=== PATIENT | male | born 1980 | race Two or more races ===

== ENCOUNTER 2018-05-08 08:00 | Outpatient (CLI) | payer MEDICAID, SELFPAY ==
--- NOTE | 2018-05-08 16:12 | PC.NURSE ---
0825 - REMOVED DRESSING FROM PT'S FOREARM. MOISTENED PACKING WITH NS AND REMOVED EASILY. IRRIGATED WOUND WITH NS. WOUND BED RED AND MOIST. MOISTENED STERILE GAUZE WITH NS AND PACKED WOUND. COVERED WITH DRY 4X4 GAUZE PADS AND HELD IN PLACE BY WRAPPING STERILE GAUZE AROUND SITE FOLLOWED BY COBAN. ENCOURAGED TO KEEP CLEAN AND DRY.
== END 2018-05-08 08:45 | disposition home or self-care (01) ==
LOC: INF 08:24
PROVIDERS: Visit Provider Surgery
DX: L02.414 Cutaneous abscess of left upper limb (principal); Z48.01 Encounter for change or removal of surgical wound dressing
CPT/HCPCS: G0463

== ENCOUNTER 2018-05-09 09:05 | Outpatient (CLI) | payer MEDICAID, SELFPAY ==
--- NOTE | 2018-05-09 09:49 | PC.NURSE ---
0910 - REMOVED DRESSING FROM LEFT FOREARM. WET PACKING WITH NS AND REMOVED EASILY. IRRIGATED WOUND WITH NS. WOUND BED RED AND BLEEDING. MOISTENED 2X2 GAUZE PAD AND PACKED INTO WOUND. COVERED WITH DRY 4X4'S AND HELD IN PLACE BY WRAPPING WITH KERLEX AND COBAN. PT/SIGNIFICANT OTHER EXPRESSED INTEREST IN HER TAKING OVER DRESSING CHANGES AT HOME. GAVE VERBAL INSTRUCTIONS ON HOW TO CLEAN AND DRESS WOUND AND SHE VERBALIZED UNDERSTANDING. INSTRUCTED TO NOTIFY MD IF WOUND/DRAINAGE BECAME FOUL SMELLING, IF PT DEVELOPS FEVER, OR WOUND STARTS LOOKING WORSE INSTEAD OF BETTER.
== END 2018-05-09 09:30 | disposition home or self-care (01) ==
LOC: INF 09:09
PROVIDERS: Visit Provider Surgery
DX: Z48.00 Encounter for change or removal of nonsurgical wound dressing (principal); L02.414 Cutaneous abscess of left upper limb; L03.114 Cellulitis of left upper limb
CPT/HCPCS: G0463

== ENCOUNTER 2019-10-25 18:40 | Emergency (ER) | payer SELFPAY ==
[2019-10-25 18:41] VITALS: BP 121/79; PULSE 91; RESP 20; TEMP 36.6; O2SAT 99; BMI 26.6
--- NOTE | 2019-10-25 19:06 | HMH.EDUTC ---
[facility] [place] Clinical Impression: Cellulitis of left upper extremity Skin abscess Qualifiers: Site of cutaneous abscess: extremity Site of cutaneous abscess of extremity: upper extremity Laterality: left Qualified Code(s): L02.414 - Cutaneous abscess of left upper limb Disposition: Home, Self-Care Condition on Discharge: Good Instructions: Cellulitis, Clindamycin, DI for Skin Abscess Additional Instructions: *Start antibiotic(s) immediately and be sure to take as ordered for the FULL length of time although you may be feeling better or start to see improvement in the next 24-48 hours *Monitor closely. Outlined redness so that you can monitor easier. Follow up immediately for new or worsening symptoms including but not limited to redness, swelling, streaking from site fever or chills. *Warm compress 15 minutes 3-4 times day *Never squeeze or pop these on your own. Seek immediate medical attention next time this occurs *Monitor Temp. Tylenol every 4 hours as needed and ibuprofen every 6 hours as needed (as long as your primary care doctor has told you that it is ok to take both. For fever, aches, pain. ER if no less that 101 despite Tylenol and ibuprofen Follow up with your family doctor/primary care physician in the next 48-72 hours if no improvement Straight to ER if any life threatening symptoms Prescriptions: clindamycin HCL [Clindamycin HCl 300mg Cap] 300 mg PO Q8 10 Days #30 cap Transmission Status: Pending to [id number] Mupirocin Calcium [Mupirocin 2% Cream 15gm] 1 applicatio TP TID 10 Days #1 tube Transmission Status: [id number] Referrals: Provider,Referral, [Primary Care Provider] - As needed Time of Disposition: 19:11 Medical Decision Making - Waqas Inquiry Pt receiving controlled substance: No Waqas was queried for this patient: No Vital Signs: 10/25/19 18:41 Temperature 97.9 F Temperature Source Oral Pulse Rate [Radial] 91 H Respiratory Rate 20 Blood Pressure [Right Arm] 121/79 Blood Pressure Mean [Right Arm] 93 Blood Pressure Source [Right Arm] Automatic Cuff Blood Pressure Position [Right Arm] Sitting 02 Sat by Pulse Oximetry 99 Oxygen Delivery Method Room Air Medical Decision Narrative: Discussed I&D and patient declined at this time reports wants to try antibiotics as it worked well the last time area marked for monitoring and patient educated to follow up with PCP and given first round of antibiotics in [facility] due to pharmacy closed at this time [facility] [place] - General Stated complaint: spot on left arm Time Seen by Provider: 10/25/19 19:06 Mode of Arrival: Ambulatory Source of Information: Patient Limitations: No Limitations Description of Symptoms (Recalled from Triage Doc. by RN): bite on left forearm HEENT Symptoms (Recalled from RN notes): No Resp Symptoms (Recalled from RN notes): No Skin Symptoms (Recalled from RN notes): Yes MS Symptoms (Recalled from RN notes): No Functional Status (Recalled from RN notes): wnl - History of Present Illness Provider Complaint: Patient states that he woke up this morning with boil like area on his left forearm States that he noticed it was hard, red, and warm to the touch, State that as the day went on he started having redness surround the abscess and he has had that before and came in to get antibiotics - Related Data Previous Rx's Medication Instructions Recorded cyclobenzaprine 10 mg tablet 10 mg PO TID PRN 5 Days #15 tab 09/16/18 Mupirocin Calcium [Mupirocin 2% 1 applicatio TP TID 10 Days #1 tube 10/25/19 Cream 15gm] clindamycin HCL [Clindamycin HCl 300 mg PO Q8 10 Days #30 cap 10/25/19 300mg Cap] Allergies Allergy/AdvReac Type Severity Reaction Status Date / Time No Known Allergies Allergy Verified 09/16/18 17:22 - Worker's Comp Is this a Worker's Comp case?: No [facility] History - Hepatitis A Screen Drug use history?: No High risk sexual behaviors?: No History of sexually
[2019-10-25 19:20] VITALS: BP 121/79; PULSE 91; RESP 20; TEMP 36.6; O2SAT 99
== END 2019-10-25 19:21 | disposition home or self-care (01) ==
PROVIDERS: Emergency Provider Nurse Practitioner
DX: L02.414 Cutaneous abscess of left upper limb (principal); F17.210 Nicotine dependence, cigarettes, uncomplicated
CPT/HCPCS: 99201

== ENCOUNTER 2020-01-09 13:14 | Inpatient (IN) | payer MEDICAID, SELFPAY ==
[2020-01-09] VITALS (11 sets, daily range): BP systolic 93–109; BP diastolic 56–71; PULSE 74–127; RESP 16–20; TEMP 36.8–37.3; O2SAT 97–100; BMI 25.7; BMI 22.4
--- NOTE | 2020-01-09 14:02 | HMH.EDGENADL ---
ED Disposition Clinical Impression: Splenic infarction, Splenomegaly, Hyponatremia, Thrombocytopenia, Heart murmur, Septic embolism CVA (cerebral vascular accident) Qualifiers: CVA mechanism: unspecified Qualified Code(s): I63.9 - Cerebral infarction, unspecified Leukocytosis Qualifiers: Leukocytosis type: unspecified Qualified Code(s): D72.829 - Elevated white blood cell count, unspecified Cirrhosis Qualifiers: Hepatic cirrhosis type: unspecified hepatic cirrhosis Ascites presence: with ascites Qualified Code(s): K74.60 - Unspecified cirrhosis of liver Endocarditis Qualifiers: Endocarditis type: infective Infective endocarditis organism: unspecified organism Chronicity: unspecified Qualified Code(s): I33.0 - Acute and subacute infective endocarditis Disposition: Admitted As Inpatient Condition on Discharge: Serious Referrals: PCP,No [Primary Care Provider] - - Critical Care Critical Care Time: No Attestation: On 01/09/20, the high probability of a clinically significant, sudden or life threatening deterioration of the following system(s) required my full and direct attention, intervention and personal management. The time I documented below is in addition to time spent performing reported procedures but includes the following listed in this critical care notation. Medical Decision Making - Waqas Inquiry Pt receiving controlled substance: No Vital Signs: 01/09/20 14:01 01/09/20 14:36 01/09/20 15:44 Temperature 98.7 F 99.2 F Temperature Source Oral Oral Pulse Rate [Right Radial] 127 H 114 H Respiratory Rate 18 18 Blood Pressure [Right Arm] 109/71 L 109/71 L Blood Pressure Mean [Right Arm] 83 83 Blood Pressure Source [Right Arm] Automatic Cuff Blood Pressure Position [Right Arm] Supine 02 Sat by Pulse Oximetry 100 100 Oxygen Delivery Method Room Air 01/09/20 16:53 01/09/20 17:00 01/09/20 17:30 Temperature Temperature Source Pulse Rate [Right Radial] 120 H 74 116 H Respiratory Rate 17 20 20 Blood Pressure [Right Arm] 106/67 L 106/67 L 109/64 L Blood Pressure Mean [Right Arm] 80 80 79 Blood Pressure Source [Right Arm] Automatic Cuff Blood Pressure Position [Right Arm] Supine 02 Sat by Pulse Oximetry 100 100 100 Oxygen Delivery Method Room Air 01/09/20 18:19 01/09/20 18:30 01/09/20 20:03 Temperature 98.3 F Temperature Source Oral Pulse Rate [Right Radial] 105 H 104 H 101 H Respiratory Rate 17 17 18 Blood Pressure [Right Arm] 106/59 L 99/56 L 93/57 L Blood Pressure Mean [Right Arm] 74 70 69 Blood Pressure Source [Right Arm] Blood Pressure Position [Right Arm] 02 Sat by Pulse Oximetry 98 100 98 Oxygen Delivery Method Room Air - Lab Data Lab Results 01/09/20 14:25: WBC 22.6 H*, RBC 4.16 L, Hgb 12.5 L, Hct 37.6 L, MCV 90.4, MCH 30.1, MCHC 33.3, RDW 15.9, Plt Count 40 L*, MPV 12.2 H, Neut % (Auto) 92.0 H, Lymph % (Auto) 4.1 L, [place] % (Auto) 3.1, Eos % (Auto) 0.3, Baso % (Auto) 0.4, Neut # (Auto) 20.8 H, Lymph # (Auto) 0.9, [place] # (Auto) 0.7, Eos # (Auto) 0.1, Baso # (Auto) 0.1, Total Counted 100, Neutrophils % (Manual) 86 H, Lymphocytes % (Manual) 10, Monocytes % (Manual) 4, Platelet Estimate Moderate d, RBC Morphology Normal 01/09/20 14:25: Sodium 118 L, Potassium 4.3, Chloride 84 L, Carbon Dioxide 26, Anion Gap 12.3, BUN 23 H, Creatinine 0.70, Estimated Creat Clear 178, Estimated GFR 124, Est GFR ( Amer) 150, Glucose 207 H, Calcium 8.1 L, Total Bilirubin 6.8 H, AST 87 H, ALT 48, Alkaline Phosphatase 144 H, Troponin I 0.36 H, Total Protein 6.3, Albumin 2.6 L, Globulin 3.7 H, Albumin/Globulin Ratio 0.7 L, Amylase 52, Lipase 36 01/09/20 14:25: Lactate 3.7 H 01/09/20 14:25: Ammonia < 9 L 01/09/20 14:25: Plasma/Serum Alcohol < 10 01/09/20 14:25: PT 13.4 H, INR 1.32 H, APTT 26.3 01/09/20 14:25: D-Dimer > 5000 H* 01/09/20 14:25: ESR 22 H 01/09/20 14:25: C-Reactive Protein 166.3 H 01/09/20 14:51: Chlamy pneumoniae PCR Not detected, Adenovirus (PCR) Not detect
--- NOTE | 2020-01-09 14:06 | XR_ITS ---
PROCEDURE: XR CHEST PORTABLE CLINICAL HISTORY: weakness COMPARISON: No exams were available for comparison FINDINGS: The cardiomediastinal silhouette and pulmonary vascularity are within normal limits. The lungs are clear without infiltrates, suspicious nodules, or pleural effusions. No acute bony abnormalities. IMPRESSION: No acute findings. Dictated by: Dr. Rico Ontiveros MD 01/09/2020 14:58 Dr. Rico Ontiveros MD in 01/09/2020 14:58
--- NOTE | 2020-01-09 14:06 | CT_ITS ---
PROCEDURE: CT HEAD/BRAIN WO CON CLINICAL INDICATION: right leg weakness COMPARISON: CT HDWO CT HEAD W/O CONTRAST from 01/07/2017 TECHNIQUE: Axial images obtained. All CT scans at the facility use one or more dose reduction, viz: automated exposure control, ma/kV adjustment per patient size (including targeted exams where dose is matched to indication, i.e. head), or iterative reconstruction technique. FINDINGS: No midline shift, mass effect, intracranial hemorrhage, hydrocephalus, or extra-axial fluid collection is evident. There is a focal small hypodense lesion left mid parietal lobe murry white matter interface. This is suggestive of suggestive of a semi acute ischemic infarct. This could also be partial volume averaging of mildly prominent cortical sulci but I somewhat favor and ischemic infarct. The sylvian fissures and cortical sulci are mildly prominent but probably normal for age. The calvarium has an unremarkable appearance. No mastoid effusion. No sinus air-fluid level. IMPRESSION: Probable semi acute infarct left MCA distribution, if clinically indicated follow-up MRI scan without and with IV contrast may be helpful in in better determining the age of the suspected infarct Dictated by: Dr. Rico Ontiveros MD 01/09/2020 15:21 Dr. Rico Ontiveros MD in [place] 01/09/2020 15:21
--- NOTE | 2020-01-09 14:17 | CT_ITS ---
PROCEDURE: CT ABDOMEN PELVIS W CON CLINICAL INDICATION: abdo pain abdo pain history of hepatitis COMPARISON: No exams were available for comparison TECHNIQUE: IV Contrast: 75ML OPTIRAY 350 Oral Contrast none given Axial images obtained with sagittal and coronal reformats. All CT scans at the facility use one or more dose reduction, viz: automated exposure control, ma/kV adjustment per patient size (including targeted exams where dose is matched to indication, i.e. head), or iterative reconstruction technique. FINDINGS: Lower thorax: There is bilateral basilar atelectasis and or mild interstitial fibrotic changes. The heart is normal in size and there appears be a small pericardial effusion. ABDOMEN: Liver: There is slightly overall increased attenuation of the liver parenchyma and very slight lobulation of the liver capsule raising the possibility of cirrhosis. There is a small amount of ascitic fluid around the right lobe of the liver. Gallbladder: The gallbladder is normal size containing several tiny calcified stones layering along the dependent wall Pancreas: No masses or peripancreatic fluid collections. Spleen: Spleen is markedly abnormal being diffusely enlarged and showing large well-demarcated areas of decreased attenuation consistent with old splenic infarcts. There are splenic varices in the hilum of the spleen. Adrenals: unremarkable Kidneys/ureters: The kidneys are normal in size and show symmetrical function. However there is a fairly well demarcated triangular-shaped area of decreased attenuation posterior medial wall of the left kidney suggesting an infarct. ABDOMEN & PELVIS: Stomach bowel: The stomach is moderately distended with ingested food particles and air. There may be small esophageal varices just above the GE junction. The small bowel appears normal. There is scattered stool and gas seen throughout the colon. There are mild pre diverticular changes of the lower descending and sigmoid colon. Peritoneum: There are dilated portosystemic venous collaterals in the upper mid abdomen just beneath the rectus abdominus muscles. Lymph nodes: No enlarged lymph nodes apparent. Vasculature: No evidence of abdominal aortic aneurysm. No retroperitoneal hemorrhage evident. Bones: No acute fracture PELVIS: Reproductive: unremarkable Bladder: The urinary bladder is moderately distended with urine. There is large amount of ascitic fluid in the pelvis and palliative Valentino. Appendix: I do not definitely identify the appendix but there are no findings to suggest appendicitis. IMPRESSION: Findings of cirrhosis of the liver with evidence of portal venous hypertension, moderate abdominal ascites and marked splenomegaly with markedly abnormal appearing spleen with multiple splenic infarcts and probable left renal infarct. Prominent varices in the splenic hilum and possible esophageal varices as well. Dictated by: Dr. Rico Ontiveros MD 01/10/2020 11:24 Dr. Rico Ontiveros MD in [place] 01/10/2020 11:24
--- NOTE | 2020-01-09 14:20 | ECG_ITS ---
APPROVED REPORT Exam: Resting ECG HR:119 bpm ECG Measurements Heart Rate 119 AXES TX 150 P 70 QRSd 102 QRS 46 QT 344 T 66 QTc 483 <Conclusion> Sinus tachycardia Possible Left atrial enlargement Borderline ECG Electronically signed by : Jaron De Jesus, 01/09/2020 20:54:16
--- NOTE | 2020-01-09 14:20 | PC.NURSE ---
received patient to exam 8 by wheelchair with c/o right lower leg weakness. pt states that he has no pain but he is unable to hardly move his right leg. pt states symptoms began 4-5 days ago. upon assessment it is noted that patient has jaundice colored eyes, generalized weakness, and slightly distended abdomen. upon undressing patient is is noted that patient has dried stool on bilateral feet and smells of urine. pt states he has had diarrhea a couple of times. pt denies pain but states he cant hardly hear, you sound like you are a mile away. pt expresses concern that he cant hear well and would like a doctor to look in his ears. assessment done, patient to nibp and spo2 monitoring. dr harris made aware of all findings. call krause placed within reach and patient verbalizes understanding of use. awaiting further orders at this time.
[2020-01-09 14:42] LABS: Basophils # 0.1 K/mm3 (0-0.2); Basophils % 0.4 % (0.1-2.0); Eosinophils # 0.1 K/mm3 (0.0-0.4); Eosinophils % 0.3 % (0.1-12.0); Hematocrit 37.6 % (42.0-52.0); Hemoglobin 12.5 g/dL (14.1-18.0); Lymphocytes # 0.9 K/mm3 (0.7-4.5); Lymphocytes % 4.1 % (10-50); Mean Corpuscular HGB Conc 33.3 g/dL (31.8-35.4); Mean Corpuscular Hemoglobin 30.1 pg (27.0-31.2); Mean Corpuscular Volume 90.4 fl (80-94); Mean Platelet Volume 12.2 fl (7.4-10.4); Monocytes # 0.7 K/mm3 (0.1-1.0); Monocytes % 3.1 % (1.7-9.3); Neutrophils # 20.8 K/mm3 (1.8-7.8); Red Blood Count 4.16 M/mm3 (4.60-6.20); Red Cell Distribution Width 15.9 % (11.5-17.5); White Blood Count 22.6 K/mm3 (4.8-10.8)
[2020-01-09 14:43] LABS: Chloride 84 mmol/L (98-107); Platelet Count 40 K/mm3 (142-424); Potassium 4.3 mmoL/L (3.5-5.1); Sodium 118 mmol/L (136-145)
[2020-01-09 14:45] LABS: Ammonia < 9 umol/L (9-30); Amylase 52 U/L (30-110); MANUAL DIFFERENTIAL MANUAL DIFFERENTIAL (MANUAL DIFF)
[2020-01-09 14:46] LABS: Alanine Aminotransferase 48 U/L (12-78); Albumin Level 2.6 g/dl (3.5-5.0); Albumin/Globulin Ratio 0.7 (1.1-1.8); Alkaline Phosphatase 144 U/L (38-126); Anion Gap 12.3 mEq/L (5-15); Aspartate Amino Transferase 87 U/L (17-59); Bilirubin,Total 6.8 mg/dl (0.2-1.3); Blood Urea Nitrogen 23 mg/dl (9-20); Calcium 8.1 mg/dl (8.4-10.2); Carbon Dioxide 26 mmol/L (22.0-30.0); Creatinine Clearance Estimated 178 mL/min (50-200); Estimated Glomerular Filt Rate 124 ml/min (>60); GFR (African American) 150 ML/MIN (>60); Globulin 3.7 g/dL (1.3-3.2); Glucose 207 mg/dl (74-100); Lipase 36 U/L (23-300); Total Protein,Serum 6.3 g/dl (6.3-8.2)
[2020-01-09 14:47] LABS: Ethyl Alcohol < 10 mg/dl (0-10)
[2020-01-09 14:48] LABS: Lactic Acid 3.7 mmol/L (0.7-2.1)
[2020-01-09 14:50] LABS: Activated Partial Thrombo Time 26.3 seconds (23.6-34.0); INR 1.32 (0.9-1.1); Prothrombin Time 13.4 seconds (9.4-11.8)
--- NOTE | 2020-01-09 14:50 | PC.NURSE ---
PT GONE TO CT
[2020-01-09 14:56] LABS: Lymphocytes % 10 % (10-50); Monocytes % 4 % (2-9); Neutrophils % 86 % (42-76); RBC Morphology Normal; Total Cells Counted 100
[2020-01-09 14:57] LABS: Platelet Estimate Moderate D
[2020-01-09 14:58] LABS: Troponin I 0.36 ng/ml (0.00-0.034)
[2020-01-09 15:05] LABS: Adenovirus,PCR Not Detected (NotDetected); Bordetella Pertussis Not Detected (NotDetected); Chlamydophila Pneumoniae, PCR Not Detected (NotDetected); Coronavirus 19, PCR Not Detected (NotDetected); Coronavirus 229E Not Detected (NotDetected); Coronavirus NL63 Not Detected (NotDetected); Coronavirus OC43 Not Detected (NotDetected); Coronovirus HKU1,PCR Not Detected (NotDetected); Human Metapneumovirus Not Detected (NotDetected); Influenza A, PCR Not Detected (NotDetected); Influenza AH1, 2009 Not Detected (NotDetected); Influenza AH1, PCR Not Detected (NotDetected); Influenza AH3,PCR Not Detected (NotDetected); Influenza B, PCR Not Detected (NotDetected); Mycoplasma Pneumoniae, PCR Not Detected (NotDetected); Parainfluenza 1, PCR Not Detected (NotDetected); Parainfluenza 2, PCR Not Detected (NotDetected); Parainfluenza 3, PCR Not Detected (NotDetected); Parainfluenza 4, PCR Not Detected (NotDetected); Respiratory Syncytial Virus Not Detected (NotDetected); Rhinovirus/Enterovirus Not Detected (NotDetected)
[2020-01-09 15:10] LABS: D-Dimer > 5000 ng/mL (0-400)
--- NOTE | 2020-01-09 15:11 | PC.NURSE ---
CRITICALS CALLED FROM LAB D-DIMER GREATER THEN 5,000. DR GREENBERG AWARE
--- NOTE | 2020-01-09 15:18 | CT_ITS ---
PROCEDURE: CT ANGIO CHEST CLINCIAL INDICATION: elevated DDimer COMPARISON: No exams were available for comparison TECHNIQUE: IV Contrast: 70ML OPTIRAY 350 Axial images obtained with sagittal and coronal reformats. All CT scans at the facility use one or more dose reduction, viz: automated exposure control, ma/kV adjustment per patient size (including targeted exams where dose is matched to indication, i.e. head), or iterative reconstruction technique. FINDINGS: HEART AND MEDIASTINAL STRUCTURES: There is mild generalized cardiomegaly with mild aortic tortuosity. BONY STRUCTURES: There is excellent vascular opacification and there is no CT evidence of pulmonary emboli to the segmental level. There is no evidence of aortic dissection. The lung reynoso are fairly well expanded showing areas of discoid atelectasis at both lung bases and posterior gutters. There is no pleural fluid. UPPER ABDOMEN: See abdominal CT dictation ADDITIONAL FINDINGS: No other significant abnormalities. IMPRESSION: No evidence of pulmonary emboli or aortic dissection or other significant acute chest pathology Dictated by: Dr. Rico Ontiveros MD 01/10/2020 11:28 Dr. Rico Ontiveros MD in [place] 01/10/2020 11:28
[2020-01-09 16:20] LABS: C-Reactive Protein 166.3 mg/L (0-4)
--- NOTE | 2020-01-09 16:30 | PC.NURSE ---
on hold with after hours cps for 25 minutes. merna, production officer briefcase sewer called once again for consult.
[2020-01-09 16:33] LABS: Erythrocyte Sedimentation Rate 22 mm/hr (0-15)
--- NOTE | 2020-01-09 16:40 | PC.NURSE ---
patient refuses to be transferred to [place] for serious health findings. pt states he has children at home and he will sign out ama to go care for them. dr harris notified and is at bedside to discuss need for continuing care.
--- NOTE | 2020-01-09 16:47 | PC.NURSE ---
spoke with ananth mcgregor front end specialist social media marketer concerning children that patient states he is responsible for at home. pt states that he has a 14 year old boy and a 12 year old girl at home that he cares for that are not his children. pt states the mother is in [place]. awaiting return call for further instruction concerning patient social status.
--- NOTE | 2020-01-09 17:16 | PC.NURSE ---
spoke with ananth mcgregor, addiction social worker personal driver and she states that the children of concern are taken care of and she got in touch with the childrens mother. notified patient that the children are cared for and he continues to refuse to transfer to [place] but states he will come back here to the hospital if allowed to leave for 30 minutes. suzi mix house operator notified of concern for patient signing out ama and his serious medical status. suzi to come to ed to evaluate patient and situation.
[2020-01-09 17:55] LABS: Troponin I 0.36 ng/ml (0.00-0.034)
--- NOTE | 2020-01-09 17:55 | PC.NURSE ---
kuldip, powerhouse mechanic apprentice speaks with patient and afterwards patient agrees to be transferred to [place]. kuldip gives patient po snack after dr kimberly alejandro. [place] [facility] contacted and dr harris consulting with dr bryan with stroke team at this time.
--- NOTE | 2020-01-09 17:57 | PC.NURSE ---
dr bryan refuses to accept patient at .
--- NOTE | 2020-01-09 18:18 | PC.NURSE ---
[facility] called to arrange consult with admitting hospitalist for possible transfer. awaiting return call. pt c/o hiccups and abdominal pain. dr harris notified and new orders received. see mar.
--- NOTE | 2020-01-09 18:24 | PC.NURSE ---
dr harris consulting with dr myrick at [facility]. pt moved to exam 4 for close cardiac monitoring.
[2020-01-09 18:30] LABS: Reflex Lactic Add Lactic Reflex
--- NOTE | 2020-01-09 18:36 | PC.NURSE ---
dr myrick refuses to accept patient. he states refusal is due to the facility not having hepatology services.
--- NOTE | 2020-01-09 18:39 | PC.NURSE ---
[facility] states they do not have hepatology. [facility] called for transfer consult.
--- NOTE | 2020-01-09 18:52 | PC.NURSE ---
transfer center called at this time stating they do not currently have any bed available but they can place pt on a waiting list. Asked them to place pt on wait list. ER made aware
--- NOTE | 2020-01-09 18:59 | PC.NURSE ---
spoke with Radha madden L public policy coordinator concerning patient and she states that their medicine beds are capped out. she states that she will consult with her medicine telephone quotation clerk doctor about possibly consulting with dr harris and call us back.
[2020-01-09 19:20] LABS: Lactic Acid Follow Up (RFLX 1) 3.1 mmol/L (0.7-2.1)
--- NOTE | 2020-01-09 19:28 | PC.NURSE ---
received call back from [facility] on wait list, medicine beds are full.
[2020-01-09 19:30] LABS: Troponin I 0.36 ng/ml (0.00-0.034)
--- NOTE | 2020-01-09 19:32 | PC.NURSE ---
call placed to [facility] again to speak with medicine instead of the stroke team
--- NOTE | 2020-01-09 19:39 | PC.NURSE ---
speaking with Dr Son at this time
--- NOTE | 2020-01-09 20:06 | PC.NURSE ---
paged pharmacy for dose.
[2020-01-09 20:53] LABS: Reflex Lactic (2 hrs) Add Lactic Reflex
[2020-01-09 21:08] LABS: Microscopic, Urine URINE MICROSCOPIC (MICROSCOPIC)
--- NOTE | 2020-01-09 21:09 | PC.NURSE ---
patient up to floor via stretcher per staff.
[2020-01-09 21:11] LABS: Appearance,Urine CLEAR (Clear); Blood, Urine 2+ (Negative); Color,Urine DK YELLOW (Yellow); Glucose,Urine (UA) Negative (Negative); Ketones,Urine Negative (Negative); Leukocyte Esterase,Urine Negative (Negative); Nitrate,Urine Negative (Negative); PH,Urine 6.5 (5.0-8.5); Protein,Urine 1+ (Negative); Urobilinogen,Urine >=8.0 EU/dl (0.2)
[2020-01-09 21:20] LABS: Bilirubin,Urine 2+ (Negative)
[2020-01-09 21:20] LABS: Lactic Acid Follow up (RFLX 2) 2.5 mmol/L (0.7-2.1)
[2020-01-09 21:21] LABS: Amorphous Sediment,Urine Trace /lpf; WBC,Urine Occasional #/hpf (0-3)
[2020-01-09 21:24] LABS: Benzodiazepines Screen,Urine Negative ng/ml (<200)
[2020-01-09 21:25] LABS: Amphetamine/Metha Screen,Urine Negative ng/ml (<1000); Barbiturates Screen,Urine Negative ng/ml (<200)
[2020-01-09 21:26] LABS: Methadone Screen,Urine Negative ng/ml (<300)
[2020-01-09 21:27] LABS: Cannabinoid Screen,Urine Negative ng/ml (<50); Cocaine Screen,Urine Negative ng/ml (<300)
[2020-01-09 21:33] LABS: Opiate Screen,Urine Positive ng/ml (<300); Phencyclidine Screen,Urine Negative ng/ml (<25)
[2020-01-10] VITALS (9 sets, daily range): BP systolic 90–120; BP diastolic 50–66; PULSE 100–121; RESP 14–20; TEMP 36.9–37.8; O2SAT 100; BMI 22.1
[2020-01-10 00:56] LABS: POC Glucose,Bedside 176 (70-110)
--- NOTE | 2020-01-10 03:11 | PC.NURSE ---
Pt A&O x3, arrived to floor c/o discomfort and tenderness to LLQ of abdomen and aching to RLE along with weakness. He also has c/o hiccups this shift and states that he has been doing this for the last five days. Pt has been observed with hiccups on and off this shift. Upon review of lab values and VS. Pt noted to meet criteria for severe sepsis in ER. MD Mojica was notified. VS have remained stable. Medications administered per jul. Pt is currently on wait list for transfer to another hospital. No other concerns at this time. Will continue to monitor.
[2020-01-10 06:15] LABS: Lymphocytes # 0.8 K/mm3 (0.7-4.5); Red Blood Count 3.05 M/mm3 (4.60-6.20)
[2020-01-10 06:18] LABS: Basophils % 0.1 % (0.1-2.0); Eosinophils # 0.1 K/mm3 (0.0-0.4); Eosinophils % 0.4 % (0.1-12.0); Lymphocytes % 6.1 % (10-50); Mean Corpuscular HGB Conc 34.9 g/dL (31.8-35.4); Mean Corpuscular Hemoglobin 30.8 pg (27.0-31.2); Mean Corpuscular Volume 88.2 fl (80-94); Mean Platelet Volume 11.7 fl (7.4-10.4); Monocytes # 0.5 K/mm3 (0.1-1.0); Monocytes % 3.7 % (1.7-9.3); Neutrophils % 89.7 % (37.0-80.0); Red Cell Distribution Width 15.9 % (11.5-17.5); White Blood Count 13.4 K/mm3 (4.8-10.8)
[2020-01-10 06:19] LABS: Hematocrit 26.9 % (42.0-52.0); Hemoglobin 9.4 g/dL (14.1-18.0)
[2020-01-10 06:20] LABS: Platelet Count 29 K/mm3 (142-424)
[2020-01-10 06:21] LABS: MANUAL DIFFERENTIAL MANUAL DIFFERENTIAL (MANUAL DIFF)
[2020-01-10 06:33] LABS: Alanine Aminotransferase 30 U/L (12-78); Albumin/Globulin Ratio 0.6 (1.1-1.8); Alkaline Phosphatase 130 U/L (38-126); Anion Gap 7.5 mEq/L (5-15); Aspartate Amino Transferase 73 U/L (17-59); Bilirubin,Total 4.5 mg/dl (0.2-1.3); Blood Urea Nitrogen 17 mg/dl (9-20); Carbon Dioxide 28 mmol/L (22.0-30.0); Chloride 89 mmol/L (98-107); Creatinine Clearance Estimated 154 mL/min (50-200); Estimated Glomerular Filt Rate 124 ml/min (>60); GFR (African American) 150 ML/MIN (>60); Globulin 3.1 g/dL (1.3-3.2); Glucose 136 mg/dl (74-100); Potassium 3.5 mmoL/L (3.5-5.1); Sodium 121 mmol/L (136-145); Total Protein,Serum 5.1 g/dl (6.3-8.2)
[2020-01-10 06:39] LABS: Eosinophils % 1 % (0-3); Lymphocytes % 4 % (10-50); Monocytes % 1 % (2-9); Neutrophils % 83 % (42-76); Platelet Estimate Marked Decrease; RBC Morphology Normal; Rouleaux 2+; Total Cells Counted 100
[2020-01-10 06:42] LABS: Calcium 7.2 mg/dl (8.4-10.2)
--- NOTE | 2020-01-10 06:52 | PC.NURSE ---
Pt was noted to be soiled. Pt was highly encouraged to allow staff to take a bath. Pt agreed to bath. Pt was noted to have excoriation and open areas with active bleeding where pt has been scratching.
--- NOTE | 2020-01-10 07:16 | PC.NURSE ---
notified of lab results including platelet count of 29.
--- NOTE | 2020-01-10 08:32 | HMH.HP ---
*Admission Date: 01/09/20 *Chief complaint: Right leg weakness *History of present illness: Randy is a 39-year-old white male who presented to the emergency room yesterday with complaints of right leg weakness that he tells me he started a week ago but had told the ER physician started 4 days ago. He has had some pain and swelling in the right lower leg. No complaints of arm weakness. He also complains of some left lower quadrant abdominal pain. No nausea or vomiting. He admits that his diet is poor. States his bowels are moving normally. No blood in his stool. No hematuria. He states he has generally been healthy with no previous hospitalizations or chronic medical problems. When asked specifically about his liver disease, he finally admitted to being diagnosed with hepatitis C several years ago when he was incarcerated. He has never been treated. He admits to IV drug abuse when he was in his 20s but denies use of illicit drugs now. His urine drug screen in the emergency room was positive for opiates. He had an extensive work-up in the emergency room. 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 Laboratory findings were markedly abnormal with an elevated white count of 22,000, platelet count of 40,000, d-dimer greater than 5000, INR 1.32, sodium 118, glucose 207, lactic acid 3.7, total bilirubin 6.8, troponin I 0.36, CRP 166, sed rate 22. These findings led to additional radiologic work-up including CTA of the chest and CT of the abdomen pelvis. His lung scan was negative for pulmonary emboli or other acute findings. Abdominal CT was significant for findings of cirrhosis with moderate ascites and portal venous hypertension with probable esophageal varices. 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 There is also evidence of an infarct of the left kidney. He was also noted to have a heart murmur which apparently was new as he was unaware of having any heart problems. With these findings, the working diagnosis became endocarditis and it was felt that he would require transfer to a tertiary care center with a multidisciplinary care team. Dr. Agarwal initially contacted the [facility] who was on diversion. He then contacted the [facility] and [facility] who were both also on diversion and would not accept the patient. He then contacted [facility] and [facility] in [place] who declined to accept the patient stating they did not have a networking technology instructor on staff. He has been placed on a wait list for the [facility] and thus admitted here pending transfer to higher level of care. [facility] History Medical History: Reports:: Hepatitis (Diagnosed with hepatitis C several years ago while incarcerated) Denies:: Cancer, Coronary Artery Disease, Diabetes Mellitus Type 1, Diabetes Mellitus Type 2, Heart Murmur, Hypertension, Internal Pacemaker, MRSA, Seizures *Have you ever received a pneumonia vaccine?: No *Have you received a flu vaccine this season?: No Other Medical History: Reports: Liver Disease. Denies: Thyroid Disease Other Surgeries: Yes: No Previous Surgery, Other (I&D of abscess of left arm). No: Pacemaker Amputation: No Fractures: No - *Social History Smoking Status: Current every day smoker Tobacco Type: cigarettes # Packs/Day (cigarettes): 1 Alcohol Intake: former (States none for past 6 months) Alcohol Intake Frequency:: a few times a month Substance Use Type: other (Admits to IV drug use in the remote past. Denies current illicit drug use) *Occupational Status:: unemployed Housing: house Household Members: significant other *Travel in the last 8 weeks: None Comment: He currently resides with a girlfriend and her 2 children by different fathers. He initially told the ER staff he could not be admitted because his girlfriend was in [place] and the 2 children were at home alone. financial services auditor was contacted and determined that his girlfriend is actually incarcerated at t
--- NOTE | 2020-01-10 08:34 | HMH.PHACONS ---
- Pharmacy Consult Date: 01/10/20 Time: 08:34 Referring provider: DR. PLATT/DIONICIO Reason for Consult:: VANCOMYCIN DOSING Allergies and ADEs:: Allergies Allergy/AdvReac Type Severity Reaction Status Date / Time No Known Allergies Allergy Verified 01/09/20 14:06 Home Medications:: Home Medications Medication Instructions Recorded Confirmed Type No Known Home Medications 01/09/20 01/09/20 History Height: 1.88 m Weight: 78.245 kg Laboratory Results:: Laboratory Results - last 24 hr 01/09/20 14:25: WBC 22.6 H*, RBC 4.16 L, Hgb 12.5 L, Hct 37.6 L, MCV 90.4, MCH 30.1, MCHC 33.3, RDW 15.9, Plt Count 40 L*, MPV 12.2 H, Neut % (Auto) 92.0 H, Lymph % (Auto) 4.1 L, [place] % (Auto) 3.1, Eos % (Auto) 0.3, Baso % (Auto) 0.4, Neut # (Auto) 20.8 H, Lymph # (Auto) 0.9, [place] # (Auto) 0.7, Eos # (Auto) 0.1, Baso # (Auto) 0.1, Total Counted 100, Neutrophils % (Manual) 86 H, Lymphocytes % (Manual) 10, Monocytes % (Manual) 4, Platelet Estimate Moderate d, RBC Morphology Normal 01/09/20 14:25: Sodium 118 L, Potassium 4.3, Chloride 84 L, Carbon Dioxide 26, Anion Gap 12.3, BUN 23 H, Creatinine 0.70, Estimated Creat Clear 178, Estimated GFR 124, Est GFR ( Amer) 150, Glucose 207 H, Calcium 8.1 L, Total Bilirubin 6.8 H, AST 87 H, ALT 48, Alkaline Phosphatase 144 H, Troponin I 0.36 H, Total Protein 6.3, Albumin 2.6 L, Globulin 3.7 H, Albumin/Globulin Ratio 0.7 L, Amylase 52, Lipase 36 01/09/20 14:25: Lactate 3.7 H 01/09/20 14:25: Ammonia < 9 L 01/09/20 14:25: Plasma/Serum Alcohol < 10 01/09/20 14:25: PT 13.4 H, INR 1.32 H, APTT 26.3 01/09/20 14:25: D-Dimer > 5000 H* 01/09/20 14:25: ESR 22 H 01/09/20 14:25: C-Reactive Protein 166.3 H 01/09/20 14:51: Chlamy pneumoniae PCR Not detected, Adenovirus (PCR) Not detected, B. pertussis DNA (PCR) Not detected, Coronavirus OC43 (PCR) Not detected, Coronavirus HKU1 (PCR) Not detected, Coronavirus 229E (PCR) Not detected, COVID-19 PCR Not detected, Coronavirus NL63 (PCR) Not detected, Human Metapneumovir PCR Not detected, Influenza A (H1) PCR Not detected, Influ A (H1N1/09) PCR Not detected, Influenza A (H3) PCR Not detected, Influenza Type A (PCR) Not detected, Influenza Type B (PCR) Not detected, M. pneumoniae (PCR) Not detected, Parainfluenza 1 (PCR) Not detected, Parainfluenza 2 (PCR) Not detected, Parainfluenza 3 (PCR) Not detected, Parainfluenza 4 (PCR) Not detected, RSV (PCR) Not detected, Entero/Rhino (PCR) Not detected 01/09/20 15:20: Troponin I 0.36 H 01/09/20 19:00: Troponin I 0.36 H 01/09/20 19:00: Lactate 3.1 H 01/09/20 20:30: Urine Color Dk yellow, Urine Appearance Clear, Urine pH 6.5, Ur Specific [place] 1.010, Urine Protein 1+, Urine Glucose (UA) Negative, Urine Ketones Negative, Urine Blood 2+, Urine Nitrate Negative, Urine Bilirubin 2+ A, Urine Urobilinogen >=8.0, Ur Leukocyte Esterase Negative, Urine RBC 10-20, Urine WBC Occasional, Amorphous Sediment Trace 01/09/20 20:30: Urine Opiates Screen Positive H, Urine Methadone Screen Negative, Ur Barbituates Screen Negative, Ur Phencyclidine Scrn Negative, Ur Amphetamines Screen Negative, U Benzodiazepines Scrn Negative, Urine Cocaine Screen Negative, U Marijuana (THC) Screen Negative 01/09/20 21:00: Lactate 2.5 H 01/09/20 22:21: POC Glucose 176 H 01/10/20 06:00: WBC 13.4 H D, RBC 3.05 L D, Hgb 9.4 L D, Hct 26.9 L, MCV 88.2, MCH 30.8, MCHC 34.9, RDW 15.9, Plt Count 29 L* D, MPV 11.7 H, Neut % (Auto) 89.7 H, Lymph % (Auto) 6.1 L, [place] % (Auto) 3.7, Eos % (Auto) 0.4, Baso % (Auto) 0.1, Neut # (Auto) 12.0 H, Lymph # (Auto) 0.8, [place] # (Auto) 0.5, Eos # (Auto) 0.1, Baso # (Auto) 0.0, Total Counted 100, Neutrophils % (Manual) 83 H, Band Neutrophils % 11.0 H, Lymphocytes % (Manual) 4 L, Monocytes % (Manual) 1 L, Eosinophils % (Manual) 1, Platelet Estimate Marked decrease, RBC Morphology Normal, [place] 2+ 01/10/20 06:00: Sodium 121 L, Potassium 3.5, Chloride 89 L, Carbon Dioxide 28, Anion Gap 7.5, BUN 17 D, Creatinine 0.70, Estimated Creat Clear 154, Estimated GFR
--- NOTE | 2020-01-10 08:35 | HMH.PHAVTE ---
[facility] Pharmacy VTE Monitoring - Patient Demographics Admission date: 01/09/20 Report Date: 01/10/20 Time: 08:35 Allergies/Adverse Reactions: Patient Allergies No Known Allergies Allergy (Verified 01/09/20 14:06) Height: 1.88 m Weight: 78.245 kg Patient Problems: Current Active Problems CVA (cerebral vascular accident) (Acute) Splenic infarction (Acute) Splenomegaly (Acute) Hyponatremia (Acute) Leukocytosis (Acute) Thrombocytopenia (Acute) Heart murmur (Acute) Cirrhosis (Acute) Septic embolism (Acute) Endocarditis (Acute) - VTE Risk Labs: VTE Related Lab Results Hgb 9.4 g/dL (14.1-18.0) L D 01/10/20 06:00 Hct 26.9 % (42.0-52.0) L 01/10/20 06:00 Plt Count 29 K/mm3 (142-424) L* D 01/10/20 06:00 PT 13.4 seconds (9.4-11.8) H 01/09/20 14:25 INR 1.32 (0.9-1.1) H 01/09/20 14:25 APTT 26.3 seconds (23.6-34.0) 01/09/20 14:25 BUN 17 mg/dl (9-20) D 01/10/20 06:00 Creatinine 0.70 mg/dl (0.66-1.25) 01/10/20 06:00 Estimated Creat Clear 154 mL/min (50-200) 01/10/20 06:00 Was VTE Risk Assessment Performed: Yes VTE Risk Level: High Risk - Prophylaxis VTE Prophylaxis Ordered?: Yes Types of VTE Prophylaxis: TEDS Knee High Location of Applied Device: Bilateral Lower Extremeties
--- NOTE | 2020-01-10 08:39 | HMH.PHAINT ---
PATIENT DOES NOT TAKE ANY HOME MEDICATIONS.
--- NOTE | 2020-01-10 09:56 | PC.NURSE ---
Dr. Trent will be notified in the am about consult for this pt.
[2020-01-10 09:59] LABS: Fibrinogen 276 mg/dL (204-500)
[2020-01-10 12:06] LABS: POC Glucose,Bedside 153 (70-110)
--- NOTE | 2020-01-10 15:34 | PC.NURSE ---
Spoke with July, bed coordinator at , she states there are no beds available Spoke with bed coordinator at and they have no beds available either
--- NOTE | 2020-01-10 15:42 | PC.NURSE ---
Pt has rested in bed this shift. He has complained of some nausea and stomach discomfort. Phenergan and morphine administered with patient reporting relief. He has had hiccups off and on most of the shift. 400 mls of dark urine out thus far. He has been sinus tach on telemetry w/HR running up to 130. O2 has been 98-100 on RA. His father reports that patient has lost 30-40 lbs in the last 4 months but he is unsure why. No other concerns or questions at this time. Will continue to monitor.
--- NOTE | 2020-01-10 20:02 | PC.NURSE ---
All documentation by Stephanie ADAMES was done under my supervision
[2020-01-10 20:21] LABS: POC Glucose,Bedside 157 (70-110)
[2020-01-10 21:24] LABS: POC Glucose,Bedside 185 (70-110)
[2020-01-11] VITALS (7 sets, daily range): BP systolic 98–120; BP diastolic 61–70; PULSE 68–105; RESP 17–22; TEMP 36.6–36.9; O2SAT 92–100; BMI 22.4
[2020-01-11 00:37] LABS: POC Glucose,Bedside 151 (70-110)
--- NOTE | 2020-01-11 06:00 | PC.NURSE ---
Pt has rested well on and off this shift. Pt has rang out for pain meds multiple times c/o lower abdominal pain. Wehn offering position changes or warm blankets to help alleviate pain, pt refuses and states the medicine is the only thing that will help. Pt received a bath this shift from [employer] staff. Pt was educated on NPO status for MD Trent. Call light is within reach. Will continue to monitor.
[2020-01-11 06:01] LABS: Basophils % 0.1 % (0.1-2.0); Lymphocytes # 0.8 K/mm3 (0.7-4.5)
[2020-01-11 06:28] LABS: Eosinophils % 0.4 % (0.1-12.0); Hematocrit 31.8 % (42.0-52.0); Lymphocytes % 6.7 % (10-50); Mean Corpuscular HGB Conc 34.3 g/dL (31.8-35.4); Mean Corpuscular Hemoglobin 30.4 pg (27.0-31.2); Mean Corpuscular Volume 88.8 fl (80-94); Mean Platelet Volume 8.8 fl (7.4-10.4); Monocytes # 0.6 K/mm3 (0.1-1.0); Monocytes % 5.2 % (1.7-9.3); Neutrophils % 87.7 % (37.0-80.0); Red Blood Count 3.58 M/mm3 (4.60-6.20); White Blood Count 11.4 K/mm3 (4.8-10.8)
[2020-01-11 06:31] LABS: Hemoglobin 10.9 g/dL (14.1-18.0)
[2020-01-11 06:32] LABS: Platelet Count 13 K/mm3 (142-424)
--- NOTE | 2020-01-11 06:33 | PC.NURSE ---
Spoke with Georgina at [facility]. Georgina states that after they discharge some pt's this morning they will be ready to transfer pt to . Georgina @ [phone]
[2020-01-11 06:34] LABS: MANUAL DIFFERENTIAL MANUAL DIFFERENTIAL (MANUAL DIFF)
[2020-01-11 06:36] LABS: POC Glucose,Bedside 164 (70-110)
[2020-01-11 07:21] LABS: Chloride 95 mmol/L (98-107); Potassium 3.5 mmoL/L (3.5-5.1); Sodium 125 mmol/L (136-145)
[2020-01-11 07:24] LABS: Alanine Aminotransferase 47 U/L (12-78); Albumin Level 2.1 g/dl (3.5-5.0); Albumin/Globulin Ratio 0.7 (1.1-1.8); Alkaline Phosphatase 129 U/L (38-126); Anion Gap 8.5 mEq/L (5-15); Aspartate Amino Transferase 113 U/L (17-59); Bilirubin,Total 5.1 mg/dl (0.2-1.3); Blood Urea Nitrogen 16 mg/dl (9-20); Calcium 7.6 mg/dl (8.4-10.2); Carbon Dioxide 25 mmol/L (22.0-30.0); Creatinine Clearance Estimated 181 mL/min (50-200); Estimated Glomerular Filt Rate 148 ml/min (>60); GFR (African American) 180 ML/MIN (>60); Globulin 3.1 g/dL (1.3-3.2); Glucose 137 mg/dl (74-100); Total Protein,Serum 5.2 g/dl (6.3-8.2)
[2020-01-11 07:31] LABS: Lymphocytes % 5 % (10-50); Monocytes % 3 % (2-9); Neutrophils % 92 % (42-76); Platelet Estimate Marked Dec; RBC Morphology Normal; Total Cells Counted 100
[2020-01-11 07:32] LABS: Rouleaux 2+
--- NOTE | 2020-01-11 08:05 | PC.NURSE ---
Called specialty clinic to notify them of a consult for Dr. Trent.
--- NOTE | 2020-01-11 09:02 | CA_ITS ---
APPROVED REPORT EXAM: Comprehensive 2D, Doppler, and color-flow Echocardiogram Technical Translator: Dana Parr RDCS Ht: 6 ft 2 in Wt: 172lbs BSA: 2.04 BP: 120/50 mmHg Indications: MURMUR,ENDOCARDITIS,HEP C,H/O IV DRUG USE,ELEVATED TROPONINS,SMOKER,CIRRHOSIS 2D Dimensions LVOT 2.32 cm (M/F) 1.5-2.5 M-Mode Dimensions RVDd 1.78 cm (0.9-2.6) LVDd 6.15 cm (3.5-5.7) LVDs 3.11 cm (3.5-5.7) IVSd 0.99 cm (0.6-1.1) PWd 0.91 cm (0.6-1.1) EF (Teich) 79.90% FS 49.40% EDV (Teich) 190.40 mL ESV (Teich) 38.20 mL Aortic Valve AO VTI 101.30 (18-25 cm) Left Ventricle Left atrium is mildly enlarged, left ventricle is normal size, there is no concentric left ventricular hypertrophy, visually estimated ejection fraction is 55% with no regional wall motion abnormality. Tissue Doppler is indicative of raise left atrial pressure. Right Ventricle Right atrium and right ventricular normal size and contractility. Aortic Valve Aortic valve appears to be grossly normal, there is no aortic stenosis or aortic insufficiency. Mitral Valve There is echodense shaggy structure seen attached to the anterior mitral leaflet, with destruction of the leaflet, associated with severe mitral regurgitation, presence of perivalvular abscess cannot be excluded, if clinically indicated transesophageal echocardiogram is recommended. Tricuspid Valve Tricuspid valve is grossly normal, there is mild tricuspid regurgitation, tricuspid regurgitation jet velocity is inadequate for calculation of the right ventricular systolic pressure. Pulmonic Valve Pulmonic valve is poorly visualized. Great Vessels Aortic root is normal size. Pericardium Small pericardial effusion noted. Conclusion 1. Mildly enlarged left atrium, normal left ventricular size, visually estimated ejection fraction 55% with no regional wall motion abnormality, tissue Doppler is indicated for raise left atrial pressure. 2. 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 If clinically indicated transesophageal echocardiogram is recommended. 3. Mild tricuspid regurgitation. 4. Small pericardial effusion noted Electronically signed by : Jonah Weeks, 01/11/2020 19:20:25
[2020-01-11 09:39] LABS: Vancomycin,Trough 18.8 ug/mL (5.0-10.0)
--- NOTE | 2020-01-11 09:41 | HMH.ACPN2 ---
<Gail Frankel - Last Filed: 01/11/20 09:41> Internal Medicine - PN: Subj *Date: 01/11/20 *Time: 09:42 Interval history: Patient states he has some left lower abdominal discomfort. He denies shortness of breath. He denies chest pain. He is trying to eat. Feels he is voiding without difficulty. Bowels have not moved. Laboratory data this morning reveal a white blood cell count of 11,400 with a hemoglobin of 10.9 hematocrit of 31.8. Lites with a sodium of 125 and potassium of 3.5 BUN is 16 creatinine 0.6. Blood cultures are positive for gram-positive cocci Exam Vital signs and Labs for Last 24 Hours: Temp Pulse Resp BP Pulse Ox 98.2 F 68 20 110/68 96 01/11/20 08:00 01/11/20 08:00 01/11/20 08:00 01/11/20 08:00 01/11/20 08:00 Laboratory Results - last 24 hr 01/09/20 20:30: Urine Color Dk yellow, Urine Appearance Clear, Urine pH 6.5, Ur Specific [place] 1.010, Urine Protein 1+, Urine Glucose (UA) Negative, Urine Ketones Negative, Urine Blood 2+, Urine Nitrate Negative, Urine Bilirubin 2+ A, Urine Urobilinogen >=8.0, Ur Leukocyte Esterase Negative, Urine RBC 10-20, Urine WBC Occasional, Amorphous Sediment Trace 01/10/20 06:14: POC Glucose 151 H 01/10/20 09:22: Fibrinogen 276 01/10/20 11:16: POC Glucose 153 H 01/10/20 16:12: POC Glucose 157 H 01/10/20 20:50: POC Glucose 185 H 01/11/20 05:30: WBC 11.4 H, RBC 3.58 L, Hgb 10.9 L D, Hct 31.8 L, MCV 88.8, MCH 30.4, MCHC 34.3, RDW 16.0, Plt Count 13 L* D, MPV 8.8, Neut % (Auto) 87.7 H, Lymph % (Auto) 6.7 L, [place] % (Auto) 5.2, Eos % (Auto) 0.4, Baso % (Auto) 0.1, Neut # (Auto) 10.0 H, Lymph # (Auto) 0.8, [place] # (Auto) 0.6, Eos # (Auto) 0.0, Baso # (Auto) 0.0, Total Counted 100, Neutrophils % (Manual) 92 H, Lymphocytes % (Manual) 5 L, Monocytes % (Manual) 3, Platelet Estimate Marked dec, RBC Morphology Normal, Rouleaux 2+ 01/11/20 06:14: POC Glucose 164 H 01/11/20 06:55: Vancomycin Trough 18.8 H 01/11/20 06:55: Sodium 125 L, Potassium 3.5, Chloride 95 L, Carbon Dioxide 25, Anion Gap 8.5, BUN 16, Creatinine 0.60 L, Estimated Creat Clear 181, Estimated GFR 148, Est GFR ( Amer) 180, Glucose 137 H, Calcium 7.6 L, Total Bilirubin 5.1 H, AST 113 H D, ALT 47 D, Alkaline Phosphatase 129 H, Total Protein 5.2 L, Albumin 2.1 L, Globulin 3.1, Albumin/Globulin Ratio 0.7 L I & O for Last 24 hours: Intake & Output 01/08/20 01/09/20 01/10/20 01/11/20 11:59 11:59 11:59 11:59 Intake Total 4152 / 4152 1970 / 1970 Output Total 700 / 700 500 / 500 Balance 3452 / 3452 1470 / 1470 Weight 172 lb 8 oz 174 lb 6.17 oz Microbiology Reports for the Last 24 Hours: Microbiology 01/09/20 14:31 Blood Blood Culture - Preliminary Gram Positive Cocci - Constitutional no acute distress Comments: Awakened for exam - *Routine Respiratory Exam Present: CTA bilaterally (Anteriorly and posteriorly) - *Routine Cardiovascular Exam Present: RRR - *Routine Abdominal Exam Present: tenderness, distended - *Routine Extremities Exam Present: edema - *Routine Neurological Exam Present: alert, oriented X3 Assessment and Plan (1) CVA (cerebral vascular accident) Current visit: Yes Status: Acute Qualifiers: CVA mechanism: unspecified Qualified Code(s): I63.9 - Cerebral infarction, unspecified Category: Medical Code(s): I63.9 - Cerebral infarction, unspecified (2) Splenic infarction Current visit: Yes Status: Acute Category: Medical Code(s): D73.5 - Infarction of spleen (3) Splenomegaly Current visit: Yes Status: Acute Category: Medical Code(s): R16.1 - Splenomegaly, not elsewhere classified (4) Renal infarct Current visit: Yes Status: Acute Category: Medical Code(s): N28.0 - Ischemia and infarction of kidney (5) Elevated troponin Current visit: Yes Status: Acute Category: Medical Code(s): R79.89 - Other specified abnormal findings of blood chemistry (6) Cirrhosis of liver with asc
--- NOTE | 2020-01-11 11:06 | HMH.PHACONS ---
- Pharmacy Consult Date: 01/11/20 Time: 11:06 Referring provider: DR. PLATT Reason for Consult:: VANCOMYCIN TROUGH LEVEL Allergies and ADEs:: Allergies Allergy/AdvReac Type Severity Reaction Status Date / Time No Known Allergies Allergy Verified 01/09/20 14:06 Home Medications:: Home Medications Medication Instructions Recorded Confirmed Type No Known Home Medications 01/09/20 01/09/20 History Height: 1.88 m Weight: 79.1 kg Laboratory Results:: Laboratory Results - last 24 hr 01/09/20 20:30: Urine Color Dk yellow, Urine Appearance Clear, Urine pH 6.5, Ur Specific [place] 1.010, Urine Protein 1+, Urine Glucose (UA) Negative, Urine Ketones Negative, Urine Blood 2+, Urine Nitrate Negative, Urine Bilirubin 2+ A, Urine Urobilinogen >=8.0, Ur Leukocyte Esterase Negative, Urine RBC 10-20, Urine WBC Occasional, Amorphous Sediment Trace 01/10/20 06:14: POC Glucose 151 H 01/10/20 11:16: POC Glucose 153 H 01/10/20 16:12: POC Glucose 157 H 01/10/20 20:50: POC Glucose 185 H 01/11/20 05:30: WBC 11.4 H, RBC 3.58 L, Hgb 10.9 L D, Hct 31.8 L, MCV 88.8, MCH 30.4, MCHC 34.3, RDW 16.0, Plt Count 13 L* D, MPV 8.8, Neut % (Auto) 87.7 H, Lymph % (Auto) 6.7 L, [place] % (Auto) 5.2, Eos % (Auto) 0.4, Baso % (Auto) 0.1, Neut # (Auto) 10.0 H, Lymph # (Auto) 0.8, [place] # (Auto) 0.6, Eos # (Auto) 0.0, Baso # (Auto) 0.0, Total Counted 100, Neutrophils % (Manual) 92 H, Lymphocytes % (Manual) 5 L, Monocytes % (Manual) 3, Platelet Estimate Marked dec, RBC Morphology Normal, Rouleaux 2+ 01/11/20 06:14: POC Glucose 164 H 01/11/20 06:55: Vancomycin Trough 18.8 H 01/11/20 06:55: Sodium 125 L, Potassium 3.5, Chloride 95 L, Carbon Dioxide 25, Anion Gap 8.5, BUN 16, Creatinine 0.60 L, Estimated Creat Clear 181, Estimated GFR 148, Est GFR ( Amer) 180, Glucose 137 H, Calcium 7.6 L, Total Bilirubin 5.1 H, AST 113 H D, ALT 47 D, Alkaline Phosphatase 129 H, Total Protein 5.2 L, Albumin 2.1 L, Globulin 3.1, Albumin/Globulin Ratio 0.7 L Medical History: Reports:: Hepatitis (Diagnosed with hepatitis C several years ago while incarcerated) Denies:: Cancer, Coronary Artery Disease, Diabetes Mellitus Type 1, Diabetes Mellitus Type 2, Heart Murmur, Hypertension, Internal Pacemaker, MRSA, Seizures Assessment and Plan (1) CVA (cerebral vascular accident) Current visit: Yes Status: Acute Qualifiers: CVA mechanism: unspecified Qualified Code(s): I63.9 - Cerebral infarction, unspecified Category: Medical Code(s): I63.9 - Cerebral infarction, unspecified (2) Splenic infarction Current visit: Yes Status: Acute Category: Medical Code(s): D73.5 - Infarction of spleen (3) Splenomegaly Current visit: Yes Status: Acute Category: Medical Code(s): R16.1 - Splenomegaly, not elsewhere classified (4) Renal infarct Current visit: Yes Status: Acute Category: Medical Code(s): N28.0 - Ischemia and infarction of kidney (5) Elevated troponin Current visit: Yes Status: Acute Category: Medical Code(s): R79.89 - Other specified abnormal findings of blood chemistry (6) Cirrhosis of liver with ascites Current visit: Yes Status: Acute Category: Medical Code(s): K74.60 - Unspecified cirrhosis of liver; R18.8 - Other ascites (7) Hyperglycemia Current visit: Yes Status: Acute Category: Medical Code(s): R73.9 - Hyperglycemia, unspecified (8) Elevated d-dimer Current visit: Yes Status: Acute Category: Medical Code(s): R79.89 - Other specified abnormal findings of blood chemistry (9) Heart murmur Current visit: Yes Status: Acute Category: Medical Code(s): R01.1 - Cardiac murmur, unspecified (10) Hyponatremia Current visit: Yes Status: Acute Category: Medical Code(s): E87.1 - Hypo-osmolality and hyponatremia (11) Leukocytosis Current visit: Yes Status: Acute Qualifiers: Leukocytosis type: unspecified Qualified Code(s): D72.829 - Elevated white blood cell count, unspecified Ca
[2020-01-11 11:48] LABS: POC Glucose,Bedside 129 (70-110)
--- NOTE | 2020-01-11 12:27 | HMH.CONS ---
*Admission Date: 01/09/20 *Reason for consult:: Cirrhosis of liver with ascites *History of present illness: This is a 39-year-old male with history of exposure to Hepatitis C about 20 years ago, past medical history of IV drug use about 20 years ago, and recent alcohol abuse up until about 2 and half months ago. 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 Blood cultures have been positive with growth of staph. He was also noted to have cirrhosis with portal hypertension and likely esophageal varices on CT scan. He admits to being exposed to hepatitis C about 20 years ago and was found to be positive for hepatitis C. His urine drug screen showed opiates in the ER but he denies current IV drug abuse. Patient does report that for the past few years he had been drinking about a sixpack of beer per day but he has been sober for the past 2 and half months. The patient is currently jaundiced with a bilirubin of 5.1. His AST is 113, ALT 47, and alk phos barely elevated at 129. He does have a low sodium and elevated INR. He is anemic with a hemoglobin of 10.9 and a platelet count of 13,000. His current meld score is equal to 26 points. He has notable abdominal ascites on exam and on CT scan. He states the abdominal swelling has come on over the course the past 2 days and was not there before. He has been n.p.o. awaiting our consult today. [facility] History I have reviewed the patient's past medical history: Yes Medical History: Reports:: Hepatitis (Diagnosed with hepatitis C several years ago while incarcerated) Denies:: Cancer, Coronary Artery Disease, Diabetes Mellitus Type 1, Diabetes Mellitus Type 2, Heart Murmur, Hypertension, Internal Pacemaker, MRSA, Seizures *Have you ever received a pneumonia vaccine?: No *Have you received a flu vaccine this season?: No Other Medical History: Reports: Liver Disease. Denies: Thyroid Disease Comment:: Reports histroy of alcohol abuse, IV drug abuse, and Hepatitis C Other Surgeries: Yes: No Previous Surgery, Other (I&D of abscess of left arm). No: Pacemaker Amputation: No Fractures: No - *Social History Smoking Status: Current every day smoker Tobacco Type: cigarettes # Packs/Day (cigarettes): 1 Alcohol Intake: former (States none for past 6 months) Alcohol Intake Frequency:: a few times a month Substance Use Type: other (Admits to IV drug use in the remote past. Denies current illicit drug use) *Occupational Status:: unemployed Housing: house Household Members: significant other *Travel in the last 8 weeks: None Family Hx:: Heart Attack, Hyperlipidemia, Hypertension Review of Systems - Review of Systems Review of systems:: pertinent systems reviewed and negative unless documented below - Constitutional Reports weight gain, Denies anorexia, Denies chills, Denies fever(s) Comments: weight gain in his abdomen over the past few days - Eyes Denies blurry vision, Denies change in vision, Denies pain - ENT Denies dizziness, Denies difficulty swallowing, Denies hoarseness, Denies pain with swallowing, Denies sore throat - *Cardiovascular Denies chest pain with activity, Denies shortness of breath, Denies generalized swelling, Denies irregular heart rhythm, Denies fainting - *Respiratory Denies chest congestion, Denies cough, Denies shortness of breath - *Gastrointestinal Reports bloating, Denies abdominal pain, Denies belching, Denies change in bowel habits, Denies difficulty swallowing, Denies heartburn, Denies nausea, Denies vomiting - *Genitourinary Denies blood in urine - *Musculoskeletal Denies muscle weakness, Denies numbness, Denies tingling - Integumentary/Breasts Denies yellowing of the skin, Denies lesions, Denies wounds - *Neurologic Reports abnormal walking, Reports weakness (Right leg), Denies behavioral changes, Denies confusion, Denies seizure-like activity, Denies dizziness, Denies he
--- NOTE | 2020-01-11 14:16 | PC.NURSE ---
[facility] @ CALLED AT THIS TIME, NO BEDS AVAILABLE AT THIS TIME.
--- NOTE | 2020-01-11 18:09 | PC.NURSE ---
pt kept tray in room to eat later
--- NOTE | 2020-01-11 18:56 | PC.NURSE ---
Addendum entered by Tamanna Pompa RN 01/11/20 19:00: Spoke [facility]/ MIKAELA, no bed available at this time. Original Note: Spoke moses/ Hang @ about bed status at this time. States there will be no bed available tonight for pt.
--- NOTE | 2020-01-11 19:50 | PC.NURSE ---
Has rested at intervals. PRN morphine given per JUL. Phenergan given once this shift for nausea w/ adequate relief. Voiding drk josué cloudy urine per urinal. Linens and gown changed this shift. Wounds cleaned and dressed to bilat buttocks placed. No BM this shift. Refuses SCUDS. Encouraged pt to turn and reposition himself frequently. Report given to Rogelio Lawson RN.
--- NOTE | 2020-01-11 19:56 | PC.NURSE ---
MIKAELA CALLED THIS RN TO NOTIFY THAT THE FACILITY STILL DOES NOT HAVE A BED AVAILABLE.
[2020-01-11 21:00] LABS: POC Glucose,Bedside 119 (70-110)
[2020-01-11 21:00] LABS: POC Glucose,Bedside 145 (70-110)
[2020-01-12] VITALS (10 sets, daily range): BP systolic 96–116; BP diastolic 59–68; PULSE 90–121; RESP 12–20; TEMP 36.8–37.2; O2SAT 88–99; BMI 23.3
--- NOTE | 2020-01-12 01:05 | PC.NURSE ---
contacted this rn for update on pt. the facility still does not have any beds available.
[2020-01-12 05:59] LABS: Basophils % 0.1 % (0.1-2.0); Eosinophils % 0.2 % (0.1-12.0); Hematocrit 28.9 % (42.0-52.0); Hemoglobin 9.8 g/dL (14.1-18.0); Lymphocytes # 0.7 K/mm3 (0.7-4.5); Lymphocytes % 4.6 % (10-50); Mean Corpuscular HGB Conc 34.1 g/dL (31.8-35.4); Mean Corpuscular Hemoglobin 29.9 pg (27.0-31.2); Mean Corpuscular Volume 87.6 fl (80-94); Mean Platelet Volume 10.4 fl (7.4-10.4); Monocytes # 0.6 K/mm3 (0.1-1.0); Monocytes % 3.7 % (1.7-9.3); Neutrophils # 14.5 K/mm3 (1.8-7.8); Neutrophils % 91.3 % (37.0-80.0); Platelet Count 75 K/mm3 (142-424); Red Blood Count 3.29 M/mm3 (4.60-6.20); Red Cell Distribution Width 15.8 % (11.5-17.5); White Blood Count 15.8 K/mm3 (4.8-10.8)
[2020-01-12 06:01] LABS: MANUAL DIFFERENTIAL MANUAL DIFFERENTIAL (MANUAL DIFF)
[2020-01-12 06:23] LABS: Hemoglobin A1C 6.5 % (4.0-6.0)
--- NOTE | 2020-01-12 06:56 | PC.NURSE ---
pt. has not c/o n/v/d. main complaint is of abd pain; tx with morphine per mar; effectiveness noted. abd distended with active bowel sounds.
[2020-01-12 07:20] LABS: Hep A Ab, IgM Negative (Negative); Hepatitis B Core Antibody IgM Negative (Negative); Hepatitis B Surface Antigen Negative (Negative)
[2020-01-12 07:31] LABS: Lymphocytes % 8 % (10-50); Monocytes % 4 % (2-9); Neutrophils % 88 % (42-76); Platelet Estimate Moderate Decrease; RBC Morphology Normal; Total Cells Counted 100
--- NOTE | 2020-01-12 08:22 | HMH.ACPN2 ---
<Gail Frankel - Last Filed: 01/12/20 08:22> Internal Medicine - PN: Subj *Date: 01/12/20 *Time: 08:22 Interval history: States he slept very little. He continues to have pain in his left upper quadrant. He denies shortness of breath and chest pain. He stays in the bed all the time. He feels he is eating a little bit better. Bowels have not moved. No [place] beds are available at present for his transfer. He was seen by gastroenterology yesterday with the following comments: Incidental finding of cirrhosis with portal hypertension and ascites on CT scan. Exposure to and diagnosis of Hep C about 20 years ago plus history of unknown IV drug abuse 20 years ago plus a few years of alcohol abuse, drinking 6 pack of beer daily up until 2 1/2 months ago. Evidence of portal HTN and ascites. He reports increase in abdominal girth since admission, may be exacerbated by IV fluid introduction. Will start lasix/spironolactone, he may be currently too unstable for Nadolol or other beta mildred. After discussion with Dr. Trent, the patient would benefit from paracentesis for the ascites and an EGD for the likely gastric and/or esophageal varices with some mild anemia, but with an elevated INR and a platelet count of 13,000, he would need a platelet therapy, such as [place] prior to a procedure which would take 7 days. His current MELD score = 26, and at 16 he is a candidate for referral for transplant evaluation. As he is awaiting transfer to a tertiary care center due to the sepsis and endocarditis, I recommend he follow with their hepatology department while there. He is not a candidate for any procedure here and may start a low sodium diet (less than 2000 mg daily). After discharge, he would benefit from Hep C treatment. Laboratory data this morning reveal a white blood cell count of 15,800 with a hemoglobin of 9.8 and hematocrit of 28.9. Platelet count this morning is increased to 75,000. Hemoglobin A1c is noted to be 6.5. Exam Vital signs and Labs for Last 24 Hours: Temp Pulse Resp BP Pulse Ox 98.2 F 109 H 20 103/63 L 97 01/12/20 08:00 01/12/20 08:00 01/12/20 08:00 01/12/20 08:00 01/12/20 08:00 Laboratory Results - last 24 hr 01/09/20 20:30: Urine Color Dk yellow, Urine Appearance Clear, Urine pH 6.5, Ur Specific [place] 1.010, Urine Protein 1+, Urine Glucose (UA) Negative, Urine Ketones Negative, Urine Blood 2+, Urine Nitrate Negative, Urine Bilirubin 2+ A, Urine Urobilinogen >=8.0, Ur Leukocyte Esterase Negative, Urine RBC 10-20, Urine WBC Occasional, Amorphous Sediment Trace 01/11/20 06:55: Vancomycin Trough 18.8 H 01/11/20 11:30: POC Glucose 129 H 01/11/20 16:09: POC Glucose 145 H 01/11/20 20:42: POC Glucose 119 H 01/12/20 05:40: WBC 15.8 H D, RBC 3.29 L, Hgb 9.8 L, Hct 28.9 L, MCV 87.6, MCH 29.9, MCHC 34.1, RDW 15.8, Plt Count 75 L D, MPV 10.4, Neut % (Auto) 91.3 H, Lymph % (Auto) 4.6 L, [place] % (Auto) 3.7, Eos % (Auto) 0.2, Baso % (Auto) 0.1, Neut # (Auto) 14.5 H, Lymph # (Auto) 0.7, [place] # (Auto) 0.6, Eos # (Auto) 0.0, Baso # (Auto) 0.0, Total Counted 100, Neutrophils % (Manual) 88 H, Lymphocytes % (Manual) 8 L, Monocytes % (Manual) 4, Platelet Estimate Moderate decrease, RBC Morphology Normal 01/12/20 05:40: Hemoglobin A1c 6.5 H I & O for Last 24 hours: Intake & Output 01/09/20 01/10/20 01/11/20 01/12/20 11:59 11:59 11:59 11:59 Intake Total 4152 / 4152 1969 / 1969 4049 / 4049 Output Total 700 / 700 500 / 500 1140 / 1140 Balance 3452 / 3452 1470 / 1470 2909 / 2909 Weight 172 lb 8 oz 174 lb 6.17 oz 181 lb 8 oz Microbiology Reports for the Last 24 Hours: Microbiology 01/09/20 14:31 Blood Blood Culture - Final Staphylococcus hominis 01/09/20 14:31 Blood Blood Culture - Preliminary NO GROWTH AFTER 48 HOURS - Constitutional no acute distress, cachectic - *Routine Respiratory Exam Present: CTA bilaterally (Anteriorly and posterio
[2020-01-12 09:19] LABS: Hepatitis C Antibody >11.0 s/co ratio (0.0-0.9)
[2020-01-12 12:52] LABS: Peripheral Smear Review Scanned Result
[2020-01-12 14:22] LABS: POC Glucose,Bedside 159 (70-110)
--- NOTE | 2020-01-12 15:27 | PC.NURSE ---
patient sister called stating they would like patient transferred closer to them in [place]. stated that she had spoken with [facility] [place] in [place] and they said they could take him but she needed to call us and relay this to [facility] so the doctor could contact them. This information along with phone number was given to nurse in dr. ellis office.
--- NOTE | 2020-01-12 17:53 | PC.NURSE ---
still awaiting vanc troughbefore hanging vancomycin
[2020-01-12 18:11] LABS: Vancomycin,Trough 22.6 ug/mL (5.0-10.0)
--- NOTE | 2020-01-12 19:48 | PC.NURSE ---
PT HAS RESTED COMFORTABLY FOR MOST OF SHIFT, HAS NOT CALLED OUT TO COMPLAIN OF PAIN THIS SHIFT, WHEN ASKED HOWEVER PATIENT STATES THAT HE IS IN PAIN, AFTER MORPHINE ADMINISTERED PT IS NOTED TO BE ASLEEP AND RESTING COMFORTABLY, PT ON RA WITH NO C/O SOA, PATIENT HAS BEEN VOIDING CLEAR YELLOW URINE PER URINAL , OUTPUT NOTED, PT HAS TOLERATED DIET WELL WITH NO C/O N/V/D, PATIENT WAS UP TO CHAIR FOR A SHORT PERIOD DURING MORNING ROUNDS, HE IS ABLE TO REPOSITION UNDER OWN POWER BUT NEEDS REMINDING AT TIMES.
[2020-01-12 20:46] LABS: POC Glucose,Bedside 150 (70-110)
[2020-01-13] VITALS: PULSE 105
--- NOTE | 2020-01-13 00:35 | PC.NURSE ---
Addendum entered by Don Negrete RN 01/13/20 00:45: [id number] Notified Chuy osullivan that pt would be ready for transfer @ 8am Original Note: 2134 called to notifed of having a bed [address] Mojica notifying him that pt has a bed @ 2226 Notified [facility] of transfer to . spoke with Chuy Robledo he stated did not have an available truck to take transfer till 8am, and gave me approval to call [facility] to see if they could take transfer. 2229 notified house that shi was unable to take transfer until 8am 2231 called [facility] spoke with Xiomara to see if they were available to take transfer they were not 223 called transfer center to see if they have available truck that would be able to take pt. They weren't available. 2239 Spoke with Sharad @ transfer center to notified that we didnt have transportation for pt until 8am. he stated that they would hold pt bed [id number]
[2020-01-13 04:00] VITALS: BP 105/69; PULSE 100; PULSE 113; RESP 16; TEMP 37.2; O2SAT 95
--- NOTE | 2020-01-13 04:44 | PC.NURSE ---
Pt A&OX4 pt c/o of LLQ pain has been medicated per JUL. pt has called out requesting pain meds exactly a the 4 hour alejandra.
[2020-01-13 05:00] VITALS: BMI 24.3
--- NOTE | 2020-01-13 07:48 | HMH.ACPN2 ---
<Gail Frankel - Last Filed: 01/13/20 07:48> Internal Medicine - PN: Subj *Date: 01/13/20 *Time: 07:48 Interval history: Patient feels about the same. Continues to have the left abdominal pain. He requires morphine every 4 hours. He is too weak to get up. He ate as usual yesterday. He is voiding QS. Bowels have not moved. He is to be transferred this morning at 8:00 to [facility] via EMS.. Discharge order has been placed. Exam Vital signs and Labs for Last 24 Hours: Temp Pulse Resp BP Pulse Ox 99.0 F 113 H 16 105/69 L 95 01/13/20 04:00 01/13/20 04:00 01/13/20 04:00 01/13/20 04:00 01/13/20 04:00 Laboratory Results - last 24 hr 01/09/20 17:20: Hepatitis A IgM Ab Negative, Hep Bs Antigen Negative, Hep B Core IgM Ab Negative, Hepatitis C Antibody >11.0 H 01/12/20 06:11: POC Glucose 159 H 01/12/20 16:00: Vancomycin Trough 22.6 H 01/12/20 20:32: POC Glucose 150 H I & O for Last 24 hours: Intake & Output 01/10/20 01/11/20 01/12/20 01/13/20 11:59 11:59 11:59 11:59 Intake Total 4152 / 4152 1970 / 1970 4049 / 4049 3967 / 3967 Output Total 700 / 700 500 / 500 1140 / 1140 2075 / 2075 Balance 3452 / 3452 1470 / 1470 2909 / 2909 1892 / 1892 Weight 172 lb 8 oz 174 lb 6.17 oz 181 lb 8 oz 189 lb 2 oz Microbiology Reports for the Last 24 Hours: Microbiology 01/09/20 14:31 Blood Blood Culture - Final Staphylococcus hominis - Constitutional no acute distress - *Routine Respiratory Exam Present: CTA bilaterally - *Routine Cardiovascular Exam Present: RRR, murmur - *Routine Abdominal Exam Present: tenderness, distended (Ascites; girth is about the same.). Absent: normoactive bowel sounds (Diminished bowel sounds) - *Routine Extremities Exam Present: edema - *Routine Neurological Exam Present: alert, oriented X3 Assessment and Plan (1) CVA (cerebral vascular accident) Status: Acute Qualifiers: CVA mechanism: unspecified Qualified Code(s): I63.9 - Cerebral infarction, unspecified Category: Medical Code(s): I63.9 - Cerebral infarction, unspecified (2) Splenic infarction Status: Acute Category: Medical Code(s): D73.5 - Infarction of spleen (3) Splenomegaly Status: Acute Category: Medical Code(s): R16.1 - Splenomegaly, not elsewhere classified (4) Renal infarct Status: Acute Category: Medical Code(s): N28.0 - Ischemia and infarction of kidney (5) Elevated troponin Status: Acute Category: Medical Code(s): R79.89 - Other specified abnormal findings of blood chemistry (6) Cirrhosis of liver with ascites Status: Acute Category: Medical Code(s): K74.60 - Unspecified cirrhosis of liver; R18.8 - Other ascites (7) Hyperglycemia Status: Acute Category: Medical Code(s): R73.9 - Hyperglycemia, unspecified (8) Elevated d-dimer Status: Acute Category: Medical Code(s): R79.89 - Other specified abnormal findings of blood chemistry (9) Heart murmur Status: Acute Category: Medical Code(s): R01.1 - Cardiac murmur, unspecified (10) Hyponatremia Status: Acute Category: Medical Code(s): E87.1 - Hypo-osmolality and hyponatremia (11) Leukocytosis Status: Acute Qualifiers: Leukocytosis type: unspecified Qualified Code(s): D72.829 - Elevated white blood cell count, unspecified Category: Medical Code(s): D72.829 - Elevated white blood cell count, unspecified (12) Thrombocytopenia Status: Acute Category: Medical Code(s): D69.6 - Thrombocytopenia, unspecified - Assessment and plan all Dx Assessment and Plan for all problems:: Being transferred this a.m. to [facility] via EMS for further care <Tom Mojica - Last Filed: 01/13/20 09:00> Internal Medicine - PN: Subj *Date: 01/13/20 *Time: 08:59 Exam Vital signs and Labs for Last 24 Hours: Temp Pulse Resp BP Pulse Ox 98.3 F 103 H 18 107/69 L
[2020-01-13 07:59] VITALS: BP 107/69; PULSE 103; RESP 20; TEMP 36.8; O2SAT 96
[2020-01-13 08:00] VITALS: PULSE 110
--- NOTE | 2020-01-13 08:12 | PC.NURSE ---
Report called to Elise at ; Ambulance called for transport
[2020-01-13 08:35] VITALS: RESP 18
--- NOTE | 2020-01-13 08:42 | HMH.PHACONS ---
- Pharmacy Consult Date: 01/13/20 Time: 08:42 Referring provider: DR. PLATT Reason for Consult:: VANCOMYCIN TROUGH LEVEL Allergies and ADEs:: Allergies Allergy/AdvReac Type Severity Reaction Status Date / Time No Known Allergies Allergy Verified 01/09/20 14:06 Home Medications:: Home Medications Medication Instructions Recorded Confirmed Type No Known Home Medications 01/09/20 01/09/20 History Height: 1.88 m Weight: 85.786 kg Laboratory Results:: Laboratory Results - last 24 hr 01/09/20 17:20: Hepatitis A IgM Ab Negative, Hep Bs Antigen Negative, Hep B Core IgM Ab Negative, Hepatitis C Antibody >11.0 H 01/12/20 06:11: POC Glucose 159 H 01/12/20 16:00: Vancomycin Trough 22.6 H 01/12/20 20:32: POC Glucose 150 H Medical History: Reports:: Hepatitis (Diagnosed with hepatitis C several years ago while incarcerated) Denies:: Cancer, Coronary Artery Disease, Diabetes Mellitus Type 1, Diabetes Mellitus Type 2, Heart Murmur, Hypertension, Internal Pacemaker, MRSA, Seizures Assessment and Plan (1) CVA (cerebral vascular accident) Current visit: Yes Status: Acute Qualifiers: CVA mechanism: unspecified Qualified Code(s): I63.9 - Cerebral infarction, unspecified Category: Medical Code(s): I63.9 - Cerebral infarction, unspecified (2) Splenic infarction Current visit: Yes Status: Acute Category: Medical Code(s): D73.5 - Infarction of spleen (3) Splenomegaly Current visit: Yes Status: Acute Category: Medical Code(s): R16.1 - Splenomegaly, not elsewhere classified (4) Renal infarct Current visit: Yes Status: Acute Category: Medical Code(s): N28.0 - Ischemia and infarction of kidney (5) Elevated troponin Current visit: Yes Status: Acute Category: Medical Code(s): R79.89 - Other specified abnormal findings of blood chemistry (6) Cirrhosis of liver with ascites Current visit: Yes Status: Acute Category: Medical Code(s): K74.60 - Unspecified cirrhosis of liver; R18.8 - Other ascites (7) Hyperglycemia Current visit: Yes Status: Acute Category: Medical Code(s): R73.9 - Hyperglycemia, unspecified (8) Elevated d-dimer Current visit: Yes Status: Acute Category: Medical Code(s): R79.89 - Other specified abnormal findings of blood chemistry (9) Heart murmur Current visit: Yes Status: Acute Category: Medical Code(s): R01.1 - Cardiac murmur, unspecified (10) Hyponatremia Current visit: Yes Status: Acute Category: Medical Code(s): E87.1 - Hypo-osmolality and hyponatremia (11) Leukocytosis Current visit: Yes Status: Acute Qualifiers: Leukocytosis type: unspecified Qualified Code(s): D72.829 - Elevated white blood cell count, unspecified Category: Medical Code(s): D72.829 - Elevated white blood cell count, unspecified (12) Thrombocytopenia Current visit: Yes Status: Acute Category: Medical Code(s): D69.6 - Thrombocytopenia, unspecified - Assessment and plan all Dx Assessment and Plan for all problems:: BASED ON VANCOMYCIN TROUGH LEVEL AND PATIENT FACTORS, RECOMMEND DECREASING DOSE SLIGHTLY TO VANCOMYCIN 1250 MG IV Q8H STARTING AT 1300 TODAY. PHARMACY WILL CONTINUE TO MONITOR AND ADJUST APPROPRIATE.
--- NOTE | 2020-01-13 08:52 | P.PN_ITS ---
Internal Medicine - PN: Subj *Date: 01/13/20 *Time: 08:52 Exam Vital signs and Labs for Last 24 Hours: Temp Pulse Resp BP Pulse Ox 98.3 F 103 H 18 107/69 L 96 01/13/20 07:59 01/13/20 07:59 01/13/20 08:35 01/13/20 07:59 01/13/20 07:59 Laboratory Results - last 24 hr 01/09/20 17:20: Hepatitis A IgM Ab Negative, Hep Bs Antigen Negative, Hep B Core IgM Ab Negative, Hepatitis C Antibody >11.0 H 01/12/20 06:11: POC Glucose 159 H 01/12/20 16:00: Vancomycin Trough 22.6 H 01/12/20 20:32: POC Glucose 150 H I & O for Last 24 hours: Intake & Output 01/10/20 01/11/20 01/12/20 01/13/20 23:59 23:59 23:59 23:59 Intake Total 3532 / 3532 2453 / 2453 3173 / 3653 2750 / 2750 Output Total 1200 / 1200 950 / 950 1440 / 1790 825 / 825 Balance 2332 / 2332 1503 / 1503 1733 / 1863 1925 / 1925 Weight 78.245 kg 79.1 kg 82.327 kg 85.786 kg Microbiology Reports for the Last 24 Hours: Microbiology 01/09/20 14:31 Blood Blood Culture - Final Staphylococcus hominis Assessment and Plan (1) CVA (cerebral vascular accident) Current visit: Yes Status: Acute Qualifiers: CVA mechanism: unspecified Qualified Code(s): I63.9 - Cerebral infarction, unspecified Category: Medical Code(s): I63.9 - Cerebral infarction, unspecified (2) Splenic infarction Current visit: Yes Status: Acute Category: Medical Code(s): D73.5 - Infarction of spleen (3) Splenomegaly Current visit: Yes Status: Acute Category: Medical Code(s): R16.1 - Spleno megaly, not elsewhere classified (4) Renal infarct Current visit: Yes Status: Acute Category: Medical Code(s): N28.0 - Ischemia and infarction of kidney (5) Elevated troponin Current visit: Yes Status: Acute Category: Medical Code(s): R79.89 - Other specified abnormal findings of blood chemistry (6) Cirrhosis of liver with ascites Current visit: Yes Status: Acute Category: Medical Code(s): K74.60 - Unspecified cirrhosis of liver; R18.8 - Other ascites (7) Hyperglycemia Current visit: Yes Status: Acute Category: Medical Code(s): R73.9 - Hyperglycemia, unspecified (8) Elevated d-dimer Current visit: Yes Status: Acute Category: Medical Code(s): R79.89 - Other specified abnormal findings of blood chemistry (9) Heart murmur Current visit: Yes Status: Acute Category: Medical Code(s): R01.1 - Cardiac murmur, unspecified (10) Hyponatremia Current visit: Yes Status: Acute Category: Medical Code(s): E87.1 - Hypo- osmolality and hyponatremia (11) Leukocytosis Current visit: Yes Status: Acute Qualifiers: Leukocytosis type: unspecified Qualified Code(s): D72.829 - Elevated white blood cell count, unspecified Category: Medical Code(s): D72.829 - Elevated white blood cell count, unspecified (12) Thrombocytopenia Current visit: Yes Status: Acute Category: Medical Code(s): D69.6 - Thrombocytopenia, unspecified The patient's infection will respond to the chosen ABx?: Yes Is the patient receiving the right drug, dose, and route?: Yes Could a more targeted ABx be ordered?: No (AWAITING CULTURES, PATIENT IS BEING TRANSFERRED TO TODAY)
[2020-01-13 11:16] LABS: POC Glucose,Bedside 152 (70-110)
--- NOTE | 2020-01-14 12:27 | [facility].DCSUM ---
General - General Admission date:: 01/09/20 <Tom Mojica - 01/15/20 08:52> 01/09/20 <JonoVanessa - 01/14/20 13:04> Discharge date: 01/13/20 <JonoVanessa - 01/14/20 13:04> HPI HPI: Randy is a 39-year-old white male who presented to the emergency room yesterday with complaints of right leg weakness that he tells me he started a week ago but had told the ER physician started 4 days ago. He has had some pain and swelling in the right lower leg. No complaints of arm weakness. He also complains of some left lower quadrant abdominal pain. No nausea or vomiting. He admits that his diet is poor. States his bowels are moving normally. No blood in his stool. No hematuria. He states he has generally been healthy with no previous hospitalizations or chronic medical problems. When asked specifically about his liver disease, he finally admitted to being diagnosed with hepatitis C several years ago when he was incarcerated. He has never been treated. He admits to IV drug abuse when he was in his 20s but denies use of illicit drugs now. His urine drug screen in the emergency room was positive for opiates. He had an extensive work-up in the emergency room. 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 Laboratory findings were markedly abnormal with an elevated white count of 22,000, platelet count of 40,000, d-dimer greater than 5000, INR 1.32, sodium 118, glucose 207, lactic acid 3.7, total bilirubin 6.8, troponin I 0.36, CRP 166, sed rate 22. These findings led to additional radiologic work-up including CTA of the chest and CT of the abdomen pelvis. His lung scan was negative for pulmonary emboli or other acute findings. Abdominal CT was significant for findings of cirrhosis with moderate ascites and portal venous hypertension with probable esophageal varices. 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 There is also evidence of an infarct of the left kidney. He was also noted to have a heart murmur which apparently was new as he was unaware of having any heart problems. With these findings, the working diagnosis became endocarditis and it was felt that he would require transfer to a tertiary care center with a multidisciplinary care team. Dr. Agarwal initially contacted the [facility] who was on diversion. He then contacted the [facility] and [facility] who were both also on diversion and would not accept the patient. He then contacted [facility] and [facility] in [place] who declined to accept the patient stating they did not have a dress marker on staff. He has been placed on a wait list for the [facility] and thus admitted here pending transfer to higher level of care. <Vanessa De La Cruz - 01/14/20 13:04> Hospital Course Hospital Course: The patient was admitted and started on IV fluids and IV antibiotics consisting of vancomycin and Zosyn pending results of his cultures. His leukocytosis, hyponatremia, and bilirubin improved. He was in need of an echocardiogram which was scheduled for the next day as ultrasound services were not available at [facility] over the weekend. GI was consulted. He had thrombocytopenia and this was a concern, but fortunately he had no evidence of bleeding. A fibrinogen level and peripheral smear were ordered. The patient did have an echo which showed an EF of 55% and a mitral valve endocarditis with severe mitral regurgitation. Presence of a perivalvular abscess could not be excluded. He also had a small pericardial effusion. His white blood cell count significantly decreased once antibiotics were initiated. His blood cultures were positive for gram-positive cocci. His electrolytes were abnormal. Genesis feliciano from GI did see the patient. She felt the cirrhosis and portal hypertension as well as ascites were due to his diagnosis of hepatitis C, unknown IV drug abuse, and alcohol abuse. She felt the increase
[2020-01-15 01:06] LABS: POC Glucose,Bedside 140 (70-110)
[2020-01-15 01:06] LABS: POC Glucose,Bedside 155 (70-110)
== END 2020-01-13 08:45 | disposition short-term general hospital (02) | DRG 432 ==
LOC: ER 19:54 → 2ND 22:17
PROVIDERS: Admitting Provider Family Medicine; Emergency Provider Emergency Medicine; Visit Provider Family Medicine
DX: K70.31 Alcoholic cirrhosis of liver with ascites (principal); I63.511 Cerebral infarction due to unspecified occlusion or stenosis of right middle cerebral artery; N28.0 Ischemia and infarction of kidney; I76 Septic arterial embolism; I38 Endocarditis, valve unspecified; K76.6 Portal hypertension; Z72.0 Tobacco use; D73.5 Infarction of spleen; F10.10 Alcohol abuse, uncomplicated; B19.20 Unspecified viral hepatitis C without hepatic coma; F11.10 Opioid abuse, uncomplicated; R16.1 Splenomegaly, not elsewhere classified
CPT/HCPCS: 36415; 70450; 71045; 71275; 74177; 80053; 80074; 80202; 80305; 81001; 82140; 82150; 82962; 83036; 83605; 83690; 84484; 85007; 85025; 85378; 85384; 85610; 85651; 85730; 86140; 87040; 87077; 87186; 87581; 87633; 87798; 93005; 93306; 99284; J2405; J2543; J3370; Q9967